=== PATIENT | female | born 1940 | race Caucasian/White ===

== ENCOUNTER 2018-07-14 13:52 | Emergency (ER) | payer MEDICARE, OTHER ==
[2018-07-14] MEDS ORDERED: LIDOCAINE 1% INJ-PF (10 MG/ML) 30 ML SDV INJ ONE (14:32)
[2018-07-14] MEDS ORDERED: ACETAMINOPHEN 325 MG TABLET PO ONE (14:33)
--- NOTE | 2018-07-14 14:38 | ER Document Report ---
ED General - General Chief Complaint: Fall Injury Stated Complaint: FALL,FACIAL INJURY Time Seen by Provider: 07/14/18 14:15 Mode of Arrival: Medic Information source: Patient, Relative, Emergency Med Personnel, [facility] Records Notes: 78-year-old female with hypertension, chronic pancreatitis presents via EMS after a trip and fall just prior to arrival. Patient denies any preceding chest pain, shortness of breath or dizziness. She states she just tripped and fell forward onto her face. She denies loss of consciousness. She denies blood thinning medications. She was able to stand up independently afterwards. Currently complaining of right arm pain and right facial pain. - HPI Onset: Just prior to arrival Onset/Duration: Sudden Quality of pain: Achy, Throbbing Severity: Mild Associated symptoms: denies: Chest pain, Headache, Nausea, Vomiting, Shortness of breath Exacerbated by: Movement Relieved by: Denies Similar symptoms previously: No Recently seen / treated by doctor: No - Related Data Allergies/Adverse Reactions: Sulfa (Sulfonamide Antibiotics) Allergy (Unknown, Verified 07/14/18 14:39) Past Medical History - General Information source: Patient, [facility] Records - Social History Smoking Status: Never Smoker Frequency of alcohol use: None Drug Abuse: None Lives with: Spouse/Significant other Family History: Reviewed & Not Pertinent Patient has suicidal ideation: No Patient has homicidal ideation: No - Past Medical History Cardiac Medical History: Reports: Hx Hypertension Endocrine Medical History: Reports: Other - Chronic pancreatitis Review of Systems - Review of Systems Notes: REVIEW OF SYSTEMS: CONSTITUTIONAL : Denies fever, chills, or sweats. Denies recent illness. Denies weight loss, recent hospitalizations. EENT: Denies visual changes, eye pain. Denies sore throat, oral lesions, difficulty swallowing. CARDIOVASCULAR: Denies chest pain. Denies palpitations. Denies lower extremity edema. RESPIRATORY: Denies cough. Denies shortness of breath, wheezing. GASTROINTESTINAL: Denies abdominal pain or distention. Denies nausea, vomiting, or diarrhea. Denies blood in vomitus, stools, or per rectum. Denies black, tarry stools. Denies constipation. GENITOURINARY: Denies difficulty urinating, painful urination, frequency, blood in urine, or vaginal discharge. MUSCULOSKELETAL: Denies back or neck pain or stiffness. + Right upper extremity pain SKIN: + Laceration to the forehead, bridge of nose. HEMATOLOGIC : Denies easy bruising or bleeding. LYMPHATIC: Denies swollen glands. NEUROLOGICAL: Denies confusion or altered mental status. Denies loss of consciousness. Denies dizziness or lightheadedness. Denies headache. Denies weakness or paralysis. Denies problems difficulty with ambulation, slurred speech. Denies sensory loss, numbness, or tingling. Denies seizures. PSYCHIATRIC: Denies anxiety or stress. Denies depression, suicidal ideation, or homicidal ideation. Denies visual or auditory hallucinations. Physical Exam - Vital signs Vitals: Temp Pulse Resp BP Pulse Ox 97.7 F 73 18 163/74 H 100 07/14/18 14:10 07/14/18 14:10 07/14/18 14:10 07/14/18 14:10 07/14/18 14:10 - Notes Notes: PHYSICAL EXAMINATION: GENERAL: Well-appearing, well-nourished and in no acute distress. GCS 15 HEAD: 1 cm laceration to the forehead. 2 cm gaping skin avulsion to the bridge of nose. EYES: Pupils equal round and reactive to light, extraocular movements intact, sclera anicteric, conjunctiva are normal. ENT: Nares patent, oropharynx clear without exudates. Moist mucous membranes. No hemanotympanum . No blood in nares. No dental fracture. Midface stable. No dental malocclusion. NECK: Normal range of motion, supple without lymphadenopathy. Trachea midline. No midline tenderness. LUNGS: Breath sounds clear to auscultation bilaterally and equal. No wheezes rales or rhonchi. HEART: Regular rate and rhythm without murmurs. Pulses intact all throughout. ABDOMEN: Soft, nontender, nondistended abdomen. No guarding, no rebound. No masses appreciated. Musculoskeletal: Decreased range of motion of the right upper extremity. No obvious deformity. No neuro deficits. Radial pulse intact. Full movement of all other extremities without deformity. No cyanosis. Hip non tender, pelvis stable. NEUROLOGICAL: Cranial nerves grossly intact. Normal speech, Normal sensory, motor, and reflex exams. PSYCH: Normal mood, normal affect. SKIN: 1 cm laceration to the forehead. 2 cm gaping skin avulsion to the bridge of nose. Course - Re-evaluation Re-evalutation: Cervical Spine CT 07/14/18 14:33 IMPRESSION: Multilevel cervical spondylosis and degenerative disc disease most prominent from C4-T1. Multilevel foraminal stenosis. No acute fracture identified. Facial Bones CT 07/14/18 14:33 IMPRESSION: 1. No acute intracranial pathology. 2. No fracture or dislocation of the facial bones. EVIDENCE OF ACUTE STROKE: NO. Head CT 07/14/18 14:33 IMPRESSION: 1. No acute intracranial pathology. 2. No fracture or dislocation of the facial bones. EVIDENCE OF ACUTE STROKE: NO. Humerus X-Ray 07/14/18 14:33 IMPRESSION: NEGATIVE STUDY OF THE RIGHT HUMERUS. NO RADIOGRAPHIC EVIDENCE OF ACUTE INJURY. Temp Pulse Resp BP Pulse Ox 97.7 F 73 18 163/74 H 100 07/14/18 14:10 07/14/18 14:10 07/14/18 14:10 07/14/18 14:10 07/14/18 14:10 78-year-old female presents after a trip and fall at home. Sustaining a laceration to her forehead, bridge of nose and avulsion of skin to her upper lip. Forehead laceration was repaired with Dermabond. Laceration to the nasal bridge was performed with loose approximation since there was a large avulsion of tissue. Sterile dressing placed. Patient discharged home in stable condition. 07/14/18 15:40 Presentation of a well appearing elderly patient in no acute distress, vitals within normal limits after a mechanical fall. Patient denies a syncopal episode as the cause for today's fall. No focal neurologic deficits on exam, no evidence of basilar skull fracture on exam without evidence of hemotympanum, raccoon eyes, or periauricular hematoma. No papilledema. Patient is not on anticoagulation. GCS is 15. No loss of consciousness. No episodes of vomiting. However, based on patient's age a CT of the head has been obtained which is negative for any acute intracranial bleed. Likewise, patient was unable to be clinically cleared due to age by [place] cervical spine criteria. A CT of the cervical spine was also obtained and likewise is negative for any acute fracture. No indication for further imaging of the cervical spine. Patient has no focal deformities or limited range of motion in any joint space. Chest and abdominal exam are benign without any focal tenderness, shortness of breath, or bruising over the chest or abdominal wall. Patient has no flank tenderness. There is no obvious findings on trauma exam today and therefore no further imaging or evaluation will be obtained at this time. At this time will dischar ge with return precautions and follow-up recommendations. Verbal discharge instructions given a the bedside and opportunity for questions given. Medication warnings reviewed. Patient is in agreement with this plan and has verbalized understanding of return precautions and the need for primary care follow-up in the next 24-72 hours. 07/14/18 15:41 - Vital Signs Vital signs: Temp Pulse Resp BP Pulse Ox 98.8 F 75 20 150/67 H 95 07/14/18 16:21 07/14/18 16:21 07/14/18 16:21 07/14/18 16:21 07/14/18 16:21 - Diagnostic Test Radiology reviewed: Image reviewed, Reports reviewed Procedures - Laceration/Wound Repair Face Time completed: 14:38 Wound length (cm): 3 - 1 cm wound to the forehead repaired with Dermabond. Wound's Depth, Shape: Irregular, Contused tissue, Other - Avulsion of tissue to the bridge of the nose significant gaping. Laceration pre-procedure: Sterile PPE donned, Shur-Clens applied Anesthetic type: 1% Lidocaine Volume Anesthetic (mLs): 5 Wound explored: Clean Wound Debrided: Minimal Wound Repaired With: Sutures Suture Size/Type: 6:0, Ethilon Number of Sutures: 3 - 1 horizontal mattress, 2 simple sutures Layer Closure?: No Post-procedure wound care: Sterile dressing applied Complications: No Discharge - Discharge Clinical Impression: Elevated blood pressure reading, Soft tissue avulsion Facial laceration Qualifiers: Encounter type: initial encounter Qualified Code(s): S01.81XA - Laceration without foreign body of other part of head, initial encounter Lip abrasion Qualifiers: Encounter type: initial encounter Qualified Code(s): S00.511A - Abrasion of lip, initial encounter Head injury Qualifiers: Encounter type: initial encounter Qualified Code(s): S09.90XA - Unspecified injury of head, initial encounter Condition: Good Disposition: HOME, SELF-CARE Instructions: Contusion ([facility]), Facial Laceration ([facility]), Head Injury Precautions ([facility]), Skin Tear ([facility]), Soap Cleansing ([facility]), Tetanus Immunization Given ([facility]) Additional Instructions: You have been seen in the Emergency Department (ED) today following a fall. Your workup today did not reveal any injuries that require you to stay in the hospital. You can expect, though, to be stiff and sore for the next several days. You can take Tylenol 1000 mg every 6 hours as needed for pain. You can apply a hot pack or electric heating pad to the sore areas. You can also use topical "Aspercreme with lidocaine" to sore areas as needed. Please follow up with your primary care doctor as soon as possible regarding today's ED visit and your recent fall. Call your doctor or return to the ED if you develop a sudden or severe headache, confusion, slurred speech, facial droop, weakness or numbness in any arm or leg, extreme fatigue, vomiting more than two times, severe abdominal pain, or other symptoms that concern you. Please return to your primary doctor, the ED, or an urgent care in 5 days for s uture removal. Return immediately if you develop spreading redness around the wound, pus from the wound, worsening pain, or a fever of >100.4. Keep the area clean and dry. Wash gently with soap and water twice daily and cover with antibiotic ointment. He will have scars. Please stay out of the sun and use sunblock to prevent worsening scarring. Patient was evaluated and treated as appropriate for the patient's presenting symptoms and complaint, with consideration of any critical or life threatening conditions that may be associated with their obtained history and exam as noted above. All results were discussed with patient and... Patient provided the opportunity to ask questions, and express concerns. Patient was educated on treatments based on their presumed diagnosis as noted above. At this time we will discharge the patient with return precautions and follow-up recommendations. Verbal discharge instructions given a the bedside. Medication warnings reviewed. Patient is in agreement with this plan and has verbalized understanding of return precautions. After careful consideration I feel that that patient can be safely discharged from the emergency department, they were advised to followup with a primary care physician in 2-3 days. Dictation on this chart was performed using voice recognition software and may result in unintended grammatical, spelling, syntax or errors. Forms: Elevated Blood Pressure Referrals: KRIK DELGADO MD [Primary Care Provider] - Follow up as needed
--- NOTE | 2018-07-14 14:59 | RADIOLOGY REPORT (SQ) ---
EXAM DESCRIPTION: CT HEAD WITHOUT; CT FACIAL AREA WITHOUT COMPLETED DATE/TIME: 07/14/2018 2:49 pm; 07/14/2018 2:48 pm REASON FOR STUDY: Fall, pain COMPARISON: None. TECHNIQUE: Axial images acquired through the brain and facial bones without intravenous contrast. I mages reviewed with bone, brain and subdural windows. Additional sagittal and coronal reconstruction s were generated. Images stored on PACS. All CT scanners at this facility use dose modulation, iterative reconstruction, and/or weight based d osing when appropriate to reduce radiation dose to as low as reasonably achievable (ALARA). [facility]: Dose Right [facility]: CareDose [facility]: Dose Right [facility]: Teradose 4D [facility]: [employer] RADIATION DOSE: CT Rad equipment meets quality standard of care and radiation dose reduction techniq ues were employed. CTDIvol: 53.2 mGy. DLP: 991 mGy-cm.; CT Rad equipment meets quality standard of ca re and radiation dose reduction techniques were employed. CTDIvol: 30.4 mGy. DLP: 595 mGy-cm. mGy. LIMITATIONS: None. FINDINGS: VENTRICLES: Normal size and contour. CEREBRUM: No masses. No hemorrhage. No midline shift. No evidence for acute infarction. Normal gra y/white matter differentiation. No areas of low density in the white matter. CEREBELLUM: No masses. No hemorrhage. No alteration of density. No evidence for acute infarction. EXTRAAXIAL SPACES: No fluid collections. No masses. ORBITS AND GLOBE: No intra- or extraconal masses. Normal contour of globe without masses. CALVARIUM: No fracture. FACIAL BONES: No fracture or dislocation. PARANASAL SINUSES: No fluid or mucosal thickening. SOFT TISSUES: Laceration over the forehead and nose. OTHER: No other significant finding. IMPRESSION: 1. No acute intracranial pathology. 2. No fracture or dislocation of the facial bones. EVIDENCE OF ACUTE STROKE: NO. COMMENT: Quality ID # [id number]: Final reports with documentation of one or more dose reduction techniques (e.g., Automated exposure control, adjustment of the mA and/or kV according to patient size, use of iterative reconstruction technique) TECHNICAL DOCUMENTATION: JOB ID: [id number] [employer]- All Rights Reserved Reading location - IP/workstation name: [email or web address]
--- NOTE | 2018-07-14 15:08 | RADIOLOGY REPORT (SQ) ---
EXAM DESCRIPTION: HUMERUS RIGHT COMPLETED DATE/TIME: 07/14/2018 2:54 pm REASON FOR STUDY: fall COMPARISON: None. NUMBER OF VIEWS: Two views. TECHNIQUE: Two radiographic images were acquired of the right humerus to include elbow and shoulder in at least one projection. LIMITATIONS: None. FINDINGS: MINERALIZATION: Normal. BONES: No acute fracture or dislocation. No worrisome bone lesions. SOFT TISSUES: No obvious swelling or foreign body. OTHER: No other significant finding. IMPRESSION: NEGATIVE STUDY OF THE RIGHT HUMERUS. NO RADIOGRAPHIC EVIDENCE OF ACUTE INJURY. TECHNICAL DOCUMENTATION: JOB ID: [id number] [employer]- All Rights Reserved Reading location - IP/workstation name: [email or web address]
--- NOTE | 2018-07-14 15:16 | RADIOLOGY REPORT (SQ) ---
EXAM DESCRIPTION: CT CERVICAL SPINE WITHOUT COMPLETED DATE/TIME: 07/14/2018 2:48 pm REASON FOR STUDY: fall COMPARISON: None. TECHNIQUE: Axial images acquired through the cervical spine without intravenous contrast. Images re viewed with lung, soft tissue and bone windows. Reconstructed coronal and sagittal MPR images review ed. Images stored on PACS. All CT scanners at this facility use dose modulation, iterative reconstruction, and/or weight based d osing when appropriate to reduce radiation dose to as low as reasonably achievable (ALARA). [facility]: Dose Right [facility]: CareDose [facility]: Dose Right [facility]: Teradose 4D [facility]: Smart [employer] RADIATION DOSE: CT Rad equipment meets quality standard of care and radiation dose reduction techniq ues were employed. CTDIvol: 16.1 mGy. DLP: 355 mGy-cm. mGy. LIMITATIONS: None. FINDINGS: ALIGNMENT: Degenerative anterolisthesis of C4 on C5 MINERALIZATION: Normal. . VERTEBRAL BODIES: No fractures or dislocation. DISCS: C1-C2: No significant spinal stenosis or exit foraminal stenosis. C2-C3: Facet arthropathy and hypertrophy on the right C2-3 with mild foraminal narrowing noted on the right. . C3-C4: Cervical spondylosis and degenerative disc disease. Minimal posterior central disc protrusio n. Facet arthropathy and hypertrophy on the left with mild foraminal narrowing bilaterally, greatest on the left. C4-C5: Cervical spondylosis and degenerative disc disease at C4-5 with degenerative anterolisthesis o f C4 on C5. Facet arthropathy and hypertrophy bilaterally, greatest on the left. Mild foraminal anders rowing noted on the left. C5-C6: Cervical spondylosis and degenerative disc disease. Minimal facet hypertrophy and arthropathy . Mild foraminal narrowing bilaterally. C6-C7: Cervical spondylosis and degenerative disc disease. C7-T1: No significant spinal stenosis or exit foraminal stenosis. FACETS, LATERAL MASSES, POSTERIOR ELEMENTS: No fractures. No dislocation. No acute findings. LUNG APICES AND SOFT TISSUES: No abnormality seen. OTHER: Multinodular thyroid. . IMPRESSION: Multilevel cervical spondylosis and degenerative disc disease most prominent from C4-T1. Multilevel foraminal stenosis. No acute fracture identified. TECHNICAL DOCUMENTATION: JOB ID: [id number] Quality ID # [id number]: Final reports with documentation of one or more dose reduction techniques (e.g., Au tomated exposure control, adjustment of the mA and/or kV according to patient size, use of iterative reconstruction technique) 2010 [employer]- All Rights Reserved Reading location - IP/workstation name: [email or web address]
[2018-07-14] MEDS ORDERED: DIPH/PERTUSS(ACELL)/TETANUS VAC/PF 0.5 ML SYR (>=10YO) IM ONE (15:46)
[2018-07-14 16:24] VITALS: BP 150/67
== END 2018-07-14 16:58 | disposition home or self-care (01) ==
LOC: ER 13:52
PROC: 0HQ1XZZ Repair Face Skin, External Approach (ICD-10-PCS; principal; 2018-07-14)
DX: S01.81XA Laceration without foreign body of other part of head, initial encounter (principal); W01.0XXA Fall on same level from slipping, tripping and stumbling without subsequent striking against object, initial encounter; Y92.009 Unspecified place in unspecified non-institutional (private) residence as the place of occurrence of the external cause; I10 Essential (primary) hypertension; K86.1 Other chronic pancreatitis
CPT/HCPCS: 99284; 90471; 73060; 70450; 70486; 72125; 90715; 12013; A9270; J3490